=== PATIENT | female | born 1990 | race Caucasian/White ===

== ENCOUNTER 2017-03-22 00:08 | Inpatient (IN) | payer OTHER ==
[~2017-03-22] VITALS: Ht 157.5 cm; Wt 70.0 kg
--- NOTE | 2017-03-22 08:14 | PR ---
[facility] [address] [place], [place] [address] Signed Progress Notes IP Datetime Report Generated by CPN: 03/22/2017 08:14 PROGRESS NOTES: [id number] Impression: Slow Progression of Labor Procedures: Scalp Electrode Plan: Continue present management VITAL SIGNS: [id number] Vital Signs: Reviewed; Within Normal Limits EXAM: [id number] Dilatation: 7.0 Effacement: 75 Station: -2 Uterine Contractions: every 2-3 minutes MEMBRANES: [id number] Membrane Status: Ruptured Amniotic Fluid Color: Clear Comments: FHR back to normal, with good contractions Will continue to monitor Fetus A: [id number] FHR Baseline: 160 Variability: Moderate 6-25bpm Accelerations: 15X15 Decelerations: Variable Presentation: Vertex Fetus B: [id number] Signing Physician: Josette Jackman MD CC: *Electronically Signed* 03/22/17813 JOSETTE JACKMAN MD PATIENT NAME: REDDY NESS PROGRESS NOTE DATE OF : 91 PHYSICIAN: JOSETTE JACKMAN MD RPT #: [id number] REPORT IS CONFIDENTIAL AND NOT TO BE RELEASED WITHOUT AUTHORIZATION
== END 2017-03-23 12:30 | disposition home or self-care (01) | DRG 775 ==
LOC: FBC 00:08
PROVIDERS: ADMIT General Practice
PROC: 10E0XZZ Delivery of Products of Conception, External Approach (ICD-10-PCS; principal; 2017-03-22)
PROC: 00HU33Z Insertion of Infusion Device into Spinal Canal, Percutaneous Approach (ICD-10-PCS; 2017-03-22)
PROC: 3E0R3CZ (ICD-10-PCS; 2017-03-22)
DX: O80 Encounter for full-term uncomplicated delivery (principal); Z3A.41 41 weeks gestation of pregnancy; Z37.0 Single live birth
CPT/HCPCS: 01960; 36415; 85025; 85027; 86850; 86900; 86901; 86920; J2210; J2590; J7120